=== PATIENT | female | born 1975 | race Caucasian/White ===

== ENCOUNTER 2017-06-18 13:04 | Emergency (ER) | payer MEDICAID ==
[~2017-06-18] VITALS: Ht 175.3 cm; Wt 82.6 kg
[~2017-06-18 13:04] MED LIST: BUSP15TA PO; CLON-365 PO; METH-356 PO; METH5TAB PO; OXYC-307 PO; PREN1TAB27 PO; PROPRANOLOL PO; RIVA20TA PO; VENL100T PO
[2017-06-18 13:06] VITALS: BP 121/90
[2017-06-18] MEDS ORDERED: HYDROcodone/APAP 5/325 TABLET ONE (13:38)
[2017-06-18] MEDS ORDERED: HYDROcodone/APAP 5/325 TABLET PO ONE (14:00)
== END 2017-06-18 13:57 | disposition home or self-care (01) ==
LOC: ED 13:51
DX: K08.89 Other specified disorders of teeth and supporting structures (principal); I10 Essential (primary) hypertension; F17.200 Nicotine dependence, unspecified, uncomplicated
CPT/HCPCS: 99283

== ENCOUNTER 2017-08-09 19:22 | Emergency (ER) | payer MEDICAID | END 2017-08-09 20:13 | disposition left against medical advice (07) | LOC: ED 20:07 | DX: G43.909 Migraine, unspecified, not intractable, without status migrainosus (principal); Z53.21 Procedure and treatment not carried out due to patient leaving prior to being seen by health care provider ==

== ENCOUNTER 2017-08-29 12:08 | Emergency (ER) | payer MEDICAID ==
[~2017-08-29] VITALS: Ht 175.3 cm; Wt 85.0 kg
[2017-08-29] MEDS ORDERED: SODIUM CHLORIDE FLUSH 10ML SYR IVF ONE (12:30)
[2017-08-29 12:46] LABS: HEMOGLOBIN 13.6 g/dL (11.7-16.4); WHITE BLOOD COUNT 4.6 x10^3/uL (3.4-10)
[2017-08-29 12:55] LABS: BLOOD UREA NITROGEN 14 mg/dL (7-18)
[2017-08-29 13:00] LABS: IS PT STATUS REG ER OR PRE ER? YES
[2017-08-29] MEDS ORDERED: PLEASE ENTER HEIGHT AND WEIGHT MC SCH (13:00)
[2017-08-29] MEDS ORDERED: KETOROLAC 30 MG/1 ML ONE (13:06)
[2017-08-29] MEDS ORDERED: KETOROLAC 30 MG/1 ML IVPush ONE (13:30)
[2017-08-29] MEDS ORDERED: FENTANYL PF 100 MCG/2ML ONE (13:34)
[2017-08-29] MEDS ORDERED: FENTANYL PF 100 MCG/2ML IV ONE (14:00)
[2017-08-29] MEDS ORDERED: HYDROmorphone 1 MG/ML, 1ML IVPush PRN ×2 (14:00→14:30)
[2017-08-29] MEDS ORDERED: ONDANSETRON 2MG/ML, 2ML IVPush ONE (14:00)
[2017-08-29] MEDS ORDERED: OMNIPAQUE 350 MG/ML, 100ML BOTTLE ONE (14:09)
[2017-08-29] MEDS ORDERED: ONDANSETRON 2MG/ML, 2ML ONE (14:16)
[2017-08-29] MEDS ORDERED: HYDROmorphone 1 MG/ML, 1ML ONE (14:16)
[2017-08-29 14:49] VITALS: BP 136/79
== END 2017-08-29 15:10 | disposition home or self-care (01) ==
LOC: ED 13:41
DX: R07.89 Other chest pain (principal); M94.0 Chondrocostal junction syndrome [Tietze]; G40.909 Epilepsy, unspecified, not intractable, without status epilepticus
CPT/HCPCS: 36415; 71275; 80048; 82040; 84484; 85025; 93005; 96374; 96375; 99285; J1170; J1885; J2405; J3010; Q9967

== ENCOUNTER 2017-09-24 21:09 | Emergency (ER) | payer MEDICAID ==
[~2017-09-24] VITALS: Ht 175.3 cm; Wt 82.1 kg
[2017-09-24 21:11] VITALS: BP 121/87
[2017-09-24] MEDS ORDERED: KETOROLAC 30 MG/1 ML ONE (21:45)
[2017-09-24] MEDS ORDERED: DEXAMETHASONE 4 MG TABLET ONE (21:45)
[2017-09-24] MEDS ORDERED: KETOROLAC 30 MG/1 ML IM ONE (22:00)
[2017-09-24] MEDS ORDERED: DEXAMETHASONE 4 MG TABLET PO ONE (22:00)
== END 2017-09-24 22:33 | disposition home or self-care (01) ==
LOC: ED 21:28
DX: H57.13 Ocular pain, bilateral (principal); J02.8 Acute pharyngitis due to other specified organisms; B97.89 Other viral agents as the cause of diseases classified elsewhere; I10 Essential (primary) hypertension; G40.909 Epilepsy, unspecified, not intractable, without status epilepticus
CPT/HCPCS: 96372; 99283; J1885

== ENCOUNTER 2017-09-26 17:01 | Emergency (ER) | payer MEDICAID ==
[~2017-09-26] VITALS: Ht 175.3 cm; Wt 83.0 kg
[2017-09-26 17:05] VITALS: BP 126/85
[2017-09-26] MEDS ORDERED: FLUORESCEIN OPHTHALMIC 1 MG STRIP EACHEYE ONE (17:30)
[2017-09-26] MEDS ORDERED: PROPARACAINE OPHTH 0.5%, 15ML EACHEYE ONE (17:30)
[2017-09-26] MEDS ORDERED: FLUORESCEIN OPHTHALMIC 1 MG STRIP ONE (17:57)
[2017-09-26] MEDS ORDERED: PROPARACAINE OPHTH 0.5%, 15ML ONE (17:58)
[2017-09-26] MEDS ORDERED: LORazepam 0.5MG TABLET PO ONE (18:30)
[2017-09-26] MEDS ORDERED: LORazepam 0.5MG TABLET ONE (18:46)
== END 2017-09-26 18:50 | disposition home or self-care (01) ==
LOC: ED 18:32
DX: B30.1 Conjunctivitis due to adenovirus (principal); F43.0 Acute stress reaction; G40.909 Epilepsy, unspecified, not intractable, without status epilepticus; I10 Essential (primary) hypertension
CPT/HCPCS: 99283

== ENCOUNTER 2017-10-03 14:56 | Emergency (ER) | payer MEDICAID ==
[~2017-10-03] VITALS: Ht 175.3 cm; Wt 82.1 kg
[2017-10-03] MEDS ORDERED: LIDOCAINE 1%, 20ML INFIL ONE (16:30)
[2017-10-03 16:41] LABS: HEMATOCRIT 37.7 % (34.6-47.8); HEMOGLOBIN 12.7 g/dL (11.7-16.4); WHITE BLOOD COUNT 10.7 x10^3/uL (3.4-10)
[2017-10-03 16:53] LABS: BLOOD UREA NITROGEN 13 mg/dL (7-18)
[2017-10-03] MEDS ORDERED: CEFTRIAXONE 1,000 MG IM ONE (17:30)
[2017-10-03] MEDS ORDERED: SODIUM CHLORIDE FLUSH 10ML SYR IVF ONE (17:30)
[2017-10-03] MEDS ORDERED: SODIUM CHLORIDE 0.9% 1,000ML IVBOLUS ONE (17:30)
[2017-10-03] MEDS ORDERED: CEFTRIAXONE PMX 1GM/50ML 50 ML ONE (17:42)
[2017-10-03] MEDS ORDERED: LIDOCAINE 1%, 10ML ONE ×2 (17:42→17:43)
[2017-10-03] MEDS ORDERED: MORPHINE SULFATE 4 MG/ML, 1ML ONE ×2 (17:42→18:29)
[2017-10-03] MEDS: MORPHINE SULFATE 4 MG/ML, 1ML IV PRN ×2 (17:51→18:33)
[2017-10-03] MEDS ORDERED: CEFTRIAXONE PMX 1GM/50ML 50 ML IV ONE (18:30)
[2017-10-03 19:17] VITALS: BP 116/82
== END 2017-10-03 19:18 | disposition home or self-care (01) ==
LOC: ED 17:50
DX: L03.115 Cellulitis of right lower limb (principal); L02.415 Cutaneous abscess of right lower limb
CPT/HCPCS: 10060; 36415; 80048; 82040; 85025; 96365; 96375; 96376; 99284; J0696; J3490; J7030

== ENCOUNTER 2018-03-23 16:59 | Emergency (ER) | payer MEDICAID ==
[~2018-03-23] VITALS: Ht 175.3 cm; Wt 74.8 kg
[2018-03-23 17:01] VITALS: BP 120/81
== END 2018-03-23 18:07 | disposition left against medical advice (07) ==
LOC: ED 18:01
DX: M79.671 Pain in right foot (principal); M79.672 Pain in left foot; Z53.21 Procedure and treatment not carried out due to patient leaving prior to being seen by health care provider

== ENCOUNTER 2018-04-25 16:03 | Emergency (ER) | payer MEDICAID ==
[~2018-04-25] VITALS: Ht 175.3 cm; Wt 70.0 kg
[2018-04-25 16:04] VITALS: BP 125/82
[2018-04-25] MEDS ORDERED: IBUPROFEN 200 MG TABLET PO ONE (17:00)
[2018-04-25 17:22] LABS: BASOPHILS % (AUTO) 0 % (0-1); EOSINOPHILS # (AUTO) 0.05 x10^3/uL (0-0.4); EOSINOPHILS % (AUTO) 1 % (1-7); LYMPHOCYTES # (AUTO) 0.97 x10^3/uL (1-3.4); LYMPHOCYTES % (AUTO) 14 % (22-44); MD NO; MEAN CORPUSCULAR HEMOGLOBIN 29.5 pg (27.0-34.8); MEAN CORPUSCULAR HGB CONC 33.6 g/dL (32.4-35.8); MEAN CORPUSCULAR VOLUME 87.7 fL (80-100); MONOCYTES # (AUTO) 0.18 x10^3/uL (0.2-0.8); MONOCYTES % (AUTO) 3 % (2-9); NEUTROPHILS # (AUTO) 5.72 x10^3/uL (1.8-6.8); NEUTROPHILS % (AUTO) 83 % (42-75); PLATELET COUNT 228 x10^3/uL (130-400); RED BLOOD COUNT 4.53 x10^6/uL (3.82-5.3); RED CELL DISTRIBUTION WIDTH 13.9 % (9.6-15.2)
[2018-04-25 17:30] LABS: ALBUMIN 3.8 g/dL (3.4-5.0); ANION GAP 8 mmol/L (5-15); CALCIUM 8.7 mg/dL (8.5-10.1); CHLORIDE 106 mmol/L (98-107); CREATININE 0.94 mg/dL (0.55-1.02)
[2018-04-25] MEDS ORDERED: IBUPROFEN 200 MG TABLET ONE (17:31)
[2018-04-25] MEDS ORDERED: CLINDAMYCIN 300 MG CAPSULE ONE (18:46)
[2018-04-25] MEDS ORDERED: CLINDAMYCIN 300 MG CAPSULE PO ONE (19:00)
== END 2018-04-25 19:06 | disposition home or self-care (01) ==
LOC: ED 18:37
DX: L03.116 Cellulitis of left lower limb (principal); M25.572 Pain in left ankle and joints of left foot; F15.20 Other stimulant dependence, uncomplicated; M79.662 Pain in left lower leg
CPT/HCPCS: 36415; 80048; 82040; 85025; 99285